=== PATIENT | female | born 1975 | race Caucasian/White ===

== ENCOUNTER 2021-02-20 16:57 | Outpatient (REF) | payer OTHER, SELFPAY ==
--- NOTE | ~2021-02-20 | XR_ITS ---
EXAMINATION: XR ELBOW, LEFT CLINICAL INFORMATION: Pain. COMPARISON: None TECHNIQUE: AP, lateral, and oblique views of the left elbow. FINDINGS: Bone alignment is normal. No fracture or dislocation is seen. There is a lucency in the lateral proximal humeral shaft. This measures approximately 2 x 3 mm and is of uncertain clinical significance. This may be related to the insertion point of the annular ligament. The joint spaces are normal. There is no joint effusion. XR/XR elbow LT min 3V IMPRESSION: 2 x 3 mm lucency in the left proximal lateral humeral shaft. This may be related to the insertion point of the annular ligament. Otherwise unremarkable exam.
== END 2021-02-20 16:58 | disposition home or self-care (01) ==
LOC: HO.XRAY 16:57
PROVIDERS: PCP Internal Medicine; Visit Provider Physician Assistant
DX: M25.522 Pain in left elbow (principal)
CPT/HCPCS: 73080

== ENCOUNTER → 2021-02-21 08:27 | Outpatient (BNVA) | payer OTHER, SELFPAY | PROVIDERS: Visit Provider Physician Assistant | DX: M77.12 Lateral epicondylitis, left elbow (principal) | CPT/HCPCS: 20551; 99202; J1020 ==

== ENCOUNTER 2021-09-12 09:13 | Outpatient (REF) | payer OTHER, SELFPAY ==
--- NOTE | ~2021-09-12 | MM_ITS ---
EXAMINATION: MM SCREENING DIGITAL BREAST TOMOSYNTHESIS, BILATERAL CLINICAL INFORMATION: Screening. Asymptomatic. The lifetime risk of breast cancer based on the Tyrer-Cuzick Model is 6.1%. COMPARISON: Mammography: December 09, 2018 and studies dating back to November 06, 2014 TECHNIQUE: Digital breast tomosynthesis is performed in both the craniocaudal and mediolateral oblique views along with computer-aided detection (CAD). Synthesized 2D images are generated from the tomosynthesis. FINDINGS: There are scattered areas of fibroglandular density (ACR BI-RADS breast composition Category b). There are no significant masses, abnormal calcifications, or other abnormalities. There is some bilateral stable circumscribed densities. MM/MM tomosynthesis screening BI IMPRESSION: There are no significant changes from prior study. ASSESSMENT: BI-RADS 2: Benign RECOMMENDATION: Routine annual mammography screening. This patient's information was entered into a reminder system with a target due date for their next mammogram.
== END 2021-09-12 09:14 | disposition home or self-care (01) ==
LOC: HO.MAMMO 09:13
PROVIDERS: PCP Internal Medicine; Visit Provider Internal Medicine
DX: Z12.31 Encounter for screening mammogram for malignant neoplasm of breast (principal)
CPT/HCPCS: 77063; 77067

== ENCOUNTER 2022-09-14 08:39 | Outpatient (REF) | payer OTHER, SELFPAY ==
--- NOTE | ~2022-09-14 | MM_ITS ---
EXAMINATION: MM SCREENING DIGITAL BREAST TOMOSYNTHESIS, BILATERAL CLINICAL INFORMATION: Screening. Asymptomatic. The lifetime risk of breast cancer based on the Tyrer-Cuzick Model is 7%. COMPARISON: Mammography: 09/12/2021, 12/09/2018, 01/15/2017 TECHNIQUE: Digital breast tomosynthesis is performed in both the craniocaudal and mediolateral oblique views along with computer-aided detection (CAD). Synthesized 2D images are generated from the tomosynthesis. FINDINGS: There are scattered areas of fibroglandular density (ACR BI-RADS breast composition Category b). The breasts show no abnormal calcifications. The bilateral axilla and skin contours are unremarkable. Left breast shows no significant mass or developing density. Right breast has subtle nodular asymmetric density mid 12:00 position questionably increased from prior studies. This could represent grouped microcysts or focal duct ectasia. Patient will be recalled for additional imaging. MM/MM tomosynthesis screening BI IMPRESSION: Right: -Nodular asymmetric density mid 12:00 questionably increased, possibly grouped microcysts or focal duct ectasia. Left: -No mammographic evidence of malignancy. ASSESSMENT: BI-RADS 0: Incomplete - Need Additional Imaging Evaluation RECOMMENDATION: 1. Additional views right breast for margins (spot CC, spot MLO). 2. Targeted ultrasound if warranted after review of the additional views. 3. Radiology department staff will contact the patient for additional imaging. This patient's information was entered into a reminder system with a target due date for their next mammogram.
== END 2022-09-14 08:40 | disposition home or self-care (01) ==
LOC: HO.MAMMO 08:39
PROVIDERS: PCP Nurse Practitioner Primary Care; Visit Provider Nurse Practitioner Primary Care
DX: Z12.31 Encounter for screening mammogram for malignant neoplasm of breast (principal)
CPT/HCPCS: 77063; 77067

== ENCOUNTER 2022-10-05 12:50 | Outpatient (REF) | payer OTHER, SELFPAY ==
--- NOTE | ~2022-10-05 | MM_ITS ---
EXAMINATION: MM DIAGNOSTIC DIGITAL BREAST TOMOSYNTHESIS, RIGHT US DIAGNOSTIC ULTRASOUND BREAST, RIGHT CLINICAL INFORMATION: Recall from screening for subtle nodular asymmetric density mid 12:00 right breast. COMPARISON: Mammography: 09/14/2022, 09/12/2021, 12/09/2018, outside mammography 01/15/2017 ([facility] TECHNIQUE: Digital breast tomosynthesis is performed. 2D images are generated from the tomosynthesis. The following views are obtained: Spot CC, spot MLO x2. Ultrasound right breast is targeted to the upper breast with right arm both elevated and down. Grayscale imaging and color Doppler are performed without and with harmonics. FINDINGS: There are scattered areas of fibroglandular density (ACR BI-RADS breast composition Category b). The additional views show small benign-appearing focal beaded nodular asymmetry mid 12:00 position. There is no spiculation. Finding is likely chronic, better visualized on recent imaging. Ultrasound right breast demonstrates probable grouped microcysts 12:00 position 7 cm from nipple measuring approximately 1 cm in length by 0.5 cm across in greatest dimension. There is no solid mass or architectural abnormality. Ultrasound finding is believed to correlate with the mammography. Results are discussed with the patient at time of visit. The additional imaging shows benign-appearing finding, likely grouped microcysts. Patient will be reassessed again in 6 months. If clinically indicated, additional targeted ultrasound may be performed at follow-up visit as well. MM/MM tomosynthesis added views R IMPRESSION: -Probable benign grouped microcysts 12:00 position mid right breast corresponding to mammographic finding. ASSESSMENT: BI-RADS 3: Probably Benign RECOMMENDATION: Diagnostic right mammography in 6 months. This patient's information was entered into a reminder system with a target due date for their next mammogram.
== END 2022-10-05 12:51 | disposition home or self-care (01) ==
LOC: HO.MAMMO 12:50
PROVIDERS: PCP Nurse Practitioner Primary Care; Visit Provider Nurse Practitioner Primary Care
DX: R92.2 Inconclusive mammogram (principal)
CPT/HCPCS: 76642; 77061; 77065

== ENCOUNTER 2023-05-13 15:00 | Outpatient (REF) | payer OTHER, SELFPAY ==
--- NOTE | ~2023-05-13 | MM_ITS ---
EXAMINATION: MM DIAGNOSTIC DIGITAL BREAST TOMOSYNTHESIS, RIGHT US BREAST LIMITED, RIGHT MAMMOGRAPHY: CLINICAL INFORMATION: 6 month follow-up for right breast cysts COMPARISON: Mammography: 10/05/2022 mammogram and ultrasound, 09/04/2022 mammogram, 09/12/2021 mammogram, dating back to 01/15/2017 mammogram. TECHNIQUE: Digital breast tomosynthesis is performed in both the craniocaudal and mediolateral oblique views along with computer-aided detection (CAD). Synthesized 2D images are generated from the tomosynthesis. FINDINGS: There are scattered areas of fibroglandular density (ACR BI-RADS breast composition Category b). At the 12:00 axis of the right breast, there is a 5 mm isodense mass, with an abutting posterior similar-appearing 5 mm isodense mass. There are no additional right breast abnormalities. There is no skin changes or axillary change. Parenchymal pattern is stable from prior studies. No developing calcifications, masses, or other abnormalities. These will be evaluated by ultrasound. ULTRASOUND: CLINICAL INFORMATION: As above. COMPARISON: 10/05/2022. TECHNIQUE: Targeted sonographic evaluation was performed using a high frequency linear transducer. Selected archived documentation. FINDINGS: RIGHT BREAST: There is a simple cyst. This is adjacent blood vessel in the right breast at the 12:00 axis, 7 cm from the nipple, measuring 5 x 3 x 5 mm. The posterior to this there are a small cluster of cysts, measuring 0.9 x 0.6 x 0.8 cm, benign and unchanged from prior exams. MM/MM tomosynthesis diagnostic RT IMPRESSION: There are no significant changes from prior study. Benign findings within the central right breast 12:00 axis related to a cyst with adjacent cluster of cysts. These findings are benign and no further follow-up is recommended. Recommend the patient return to routine screening mammography. OVERALL ASSESSMENT: Mammography: BI-RADS 2 - Benign Findings Ultrasound: BI-RADS 2 - Benign Findings RECOMMENDATION: Surgical Consult Results were provided to the patient at time of visit by the technologist. This patient's information was entered into a reminder system with a target due date for their next mammogram.
== END 2023-05-13 15:01 | disposition home or self-care (01) ==
LOC: HO.MAMMO 15:00
PROVIDERS: Visit Provider Nurse Practitioner Primary Care
DX: N63.15 Unspecified lump in the right breast, overlapping quadrants (principal)
CPT/HCPCS: 76642; 77061; 77065

== ENCOUNTER → 2023-05-13 15:00 | Outpatient (BNV) | payer OTHER, SELFPAY | PROVIDERS: Visit Provider Radiology Diagnostic Radiology | DX: R92.321 Mammographic fibroglandular density, right breast (principal) | CPT/HCPCS: 76642; 77061; 77065 ==